=== PATIENT | female | born 1940 | race Two or more races ===

== ENCOUNTER 2020-07-05 19:01 | Inpatient (IN) | payer OTHER, MEDICAID ==
[~2020-07-05] VITALS: Ht 157.5 cm; Wt 33.0 kg
[2020-07-05 20:32] LABS: Eosinophils # (auto) 0.2 10 ^3/uL (0-0.8); Hemoglobin 9.6 g/dL (12.2-16.2)
[2020-07-05 20:33] LABS: Basophils # (auto) 0.1 10 ^3/uL (0-0.2); Basophils % (auto) 0.7 % (0.0-2.0); Eosinophils % (auto) 1.9 % (0.0-7.0); Hematocrit 31.5 % (36.0-46.0); Lymphocytes # (auto) 1.3 10 ^3/uL (0.4-5.4); Lymphocytes % (auto) 15.2 % (10.0-50.0); Mean Corpuscular Hemoglobin 25.1 pg (28.0-32.0); Mean Corpuscular Hgb Conc. 30.5 g/dL (32.0-36.0); Mean Corpuscular Volume 82.2 fL (80.0-100.0); Monocytes # (auto) 0.9 10 ^3/uL (0-1.3); Monocytes % (auto) 10.2 % (0.0-12.0); Neutrophils # (auto) 6.4 10 ^3/uL (1.6-8.6); Platelet Count (auto) 299 10^3/uL (140-450); Red Blood Cells 3.84 10^6/uL (4.0-5.20); Red Cell Distribution Width 18.6 % (11.8-14.3); White Blood Cell 8.8 10^3/uL (4.4-10.8)
[2020-07-05 20:49] LABS: Calcium 8.7 mg/dL (8.5-10.1); Potassium 3.9 mmol/L (3.5-5.1)
[2020-07-05 21:00] LABS: Albumin 3.1 g/dL (3.4-5.0); BUN/Creatinine Ratio 23.3; Bilirubin, Total 0.3 mg/dL (0.2-1.0); Total Protein 7.7 g/dL (6.4-8.2)
[2020-07-05 21:30] LABS: Urine Amorphous Crystal FEW /hpf (None Seen); Urine Bacteria MOD /hpf (None Seen); Urine Blood 1+ /uL (Negative); Urine Specific Gravity 1.013 (1.001-1.035); Urine WBC 925 /hpf (0 - 5); Urine WBC Clumps PRESENT /hpf (None Seen)
[2020-07-05] MEDS ORDERED: cefTRIAXone 1GM/50ML D5W 50 ML IV ONE (22:30)
[2020-07-05] MEDS ORDERED: SODIUM CHLORIDE 0.9% 2,000 ML IV ONE (23:00)
[2020-07-05] MEDS ORDERED: ONDANSETRON HCL 4 MG/2 ML VIAL IV PRN (23:00)
[2020-07-05] MEDS ORDERED: NITROGLYCERIN 0.4 MG SL TAB SL PRN (23:00)
[2020-07-05] MEDS ORDERED: MORPHINE SULF INJ 2 MG/ML SYRINGE 1ML IV PRN (23:00)
[2020-07-05] MEDS ORDERED: ACETAMINOPHEN 500 MG TAB PO PRN (23:00)
[2020-07-06] MEDS ORDERED: ATOR1TAB PO (00:58)
[2020-07-06] MEDS ORDERED: METF-370 PO (00:58)
[2020-07-06] MEDS ORDERED: LEVO88TA4 PO (00:58)
[2020-07-06] MEDS ORDERED: CHOL20009 PO (00:58)
--- NOTE | 2020-07-06 01:00 | NUR ---
Telemetry admit from ER MAIRA SEARS admitted to Telemetry unit. Patient oriented to Yoana Norman, primary RN, unit, room, bed, and unit policies regarding patient care and visiting hours. Patient now on continuous telemetry monitoring, tele box #63 and telemetry reading on arrival to unit is sinus rhythm. Patient weighed by bedscale and encouraged to call if they need something. All questions and concerns addressed, patient verbalized understanding.
[2020-07-06 05:00] VITALS: BP 131/57
[2020-07-06 06:48] LABS: Eosinophils # (auto) 0.2 10 ^3/uL (0-0.8); Lymphocytes # (auto) 1.1 10 ^3/uL (0.4-5.4); Lymphocytes % (auto) 14.1 % (10.0-50.0); Neutrophils # (auto) 5.5 10 ^3/uL (1.6-8.6)
[2020-07-06 06:54] LABS: Basophils # (auto) 0 10 ^3/uL (0-0.2); Basophils % (auto) 0.6 % (0.0-2.0); Hematocrit 26.7 % (36.0-46.0); Hemoglobin 8.7 g/dL (12.2-16.2); Mean Corpuscular Hemoglobin 26.1 pg (28.0-32.0); Mean Corpuscular Hgb Conc. 32.7 g/dL (32.0-36.0); Mean Corpuscular Volume 79.7 fL (80.0-100.0); Monocytes # (auto) 0.7 10 ^3/uL (0-1.3); Monocytes % (auto) 8.8 % (0.0-12.0); Neutrophils % (auto) 73.5 % (37.0-80.0); Nucleated Red Blood Cells % 0.1 %; Platelet Count (auto) 249 10^3/uL (140-450); Red Blood Cells 3.35 10^6/uL (4.0-5.20); Red Cell Distribution Width 18.5 % (11.8-14.3); White Blood Cell 7.5 10^3/uL (4.4-10.8)
--- NOTE | 2020-07-06 06:58 | NUR ---
URINE SENT TO LAB
[2020-07-06 07:18] LABS: Potassium 3.8 mmol/L (3.5-5.1)
[2020-07-06 07:23] LABS: Albumin 2.6 g/dL (3.4-5.0); Calcium 8.1 mg/dL (8.5-10.1)
[2020-07-06 07:25] LABS: Bilirubin, Total 0.3 mg/dL (0.2-1.0); Total Protein 6.9 g/dL (6.4-8.2)
--- NOTE | 2020-07-06 07:55 | NUR ---
Opening Shift Note Assumed care of patient, awake and alertx4. No S/S of distress/SOB or pain. Instructed on POC and to call for assist PRN. Bed at lowest locked position and all light within reach will continue to monitor for changes Q1hr and PRN.
[2020-07-06 08:00] VITALS: BP 134/63
--- NOTE | 2020-07-06 09:00 | NUR ---
Assisted patient to set up tray and open food containers. Patient sitting up and eating with no difficulty. Call light within reach. Will continue to monitor PRN.
[2020-07-06 09:15] VITALS: BP 134/63
[2020-07-06] MEDS ORDERED: LACTULOSE 20Gm/30ML SOLN PO ONE (10:00)
[2020-07-06] MEDS: cefTRIAXone 1GM/50ML D5W 50 ML IV SCH ×2 (11:00→11:03)
[2020-07-06 13:00] VITALS: BP 158/76
--- NOTE | 2020-07-06 16:33 | NUR ---
DR. BARNEY AT BEDSIDE
[2020-07-06 16:42] VITALS: BP 148/66
[2020-07-06] MEDS ORDERED: levoFLOXacin 500MG 100 ML IV ONE (18:00)
--- NOTE | 2020-07-06 19:11 | NUR ---
closing note Patient comfortably resting in bed. Bed at lowest locked position . Report given Cindy HATCH
[2020-07-06 22:00] VITALS: BP 145/63
[2020-07-07 05:00] VITALS: BP 155/72
[2020-07-07 08:00] VITALS: BP 160/70
--- NOTE | 2020-07-07 08:00 | NUR ---
opening note Opening Shift Note Assumed care of patient, awake and alertx4. Assisted patient with setting up breakfast tray. Patient currently eating breakfast. No S/S of distress/SOB or pain. Instructed on POC and to call for assist PRN, will continue to monitor for changes Q1hr and PRN. Bed at lowest locked position and all light within reach.
[2020-07-07] MEDS ORDERED: LISI-646 PO (09:16)
[2020-07-07] MEDS ORDERED: SERT100T PO (09:19)
--- NOTE | 2020-07-07 09:58 | NUR ---
family update Provided patient's family with a POC update after password was provided.
[2020-07-07] MEDS ORDERED: LISINOPRIL 20 MG TAB PO SCH (10:00)
[2020-07-07] MEDS ORDERED: levoFLOXacin 500MG 100 ML IV SCH (10:00)
[2020-07-07] MEDS ORDERED: levoFLOXacin 250MG 50 ML IV SCH (10:00)
--- NOTE | 2020-07-07 10:22 | NUR ---
Dr. Houston at bedside.
[2020-07-07 13:00] VITALS: BP 137/80
--- NOTE | 2020-07-07 14:40 | NUR ---
Cooper catheter dc'd Order to discontinue Cooper catheter. Cooper dc'd with clean technique following deflation of balloon. Patient tolerated well with no complaints of pain. Continue care.
--- NOTE | 2020-07-07 14:41 | NUR ---
Called patient's son Patrick, to inform him of patient's discharge order. He stated " i will be there within an hour".
--- NOTE | 2020-07-07 14:49 | NUR ---
IV removal IV DC'd with clean sterile technique, catheter fully intact. Pressure dressing applied to site. Patient tolerated well.
--- NOTE | 2020-07-07 16:21 | NUR ---
RAS Laura "Sridevi", patient's daughter. She will not be able to pick the patient up until approximately 17:30. Patient is ready for pick-up. Will inform patient.
--- NOTE | 2020-07-07 18:33 | NUR ---
Called patient's son Patrick again, to ask about their ETA. He stated he did not know, and that he would ask his sister. Awaiting call back.
--- NOTE | 2020-07-07 19:26 | NUR ---
closing note Patient is comfortable resting in bed. No s/s of distress/sob noted/stated. Bed at lowest locked position and call light within reach. Care endorsed to NOC RN.
--- NOTE | 2020-07-07 20:20 | NUR ---
Discharge instructions given as ordered. Encourage to follow up with PMD as instructed. All questions and concerns addressed. Patient verbalized understanding. IV and maravilla catheter removed by day shift. Patient taken to vehicle via wheelchair with all personal belongings, accompanied by staff and family member. No distress noted at time of departure.
[2020-07-07] MEDS ORDERED: SERTRALINE HCL 50 MG TAB PO SCH (22:00)
== END 2020-07-07 20:20 | disposition home or self-care (01) | DRG 871 ==
LOC: EDBD 19:01 → ER 19:01 → TELE 19:02 → TELE-WESTW 23:37
PROVIDERS: ADMIT Internal Medicine; ATTEND Internal Medicine
DX: A41.9 Sepsis, unspecified organism (principal); G93.41 Metabolic encephalopathy; N39.0 Urinary tract infection, site not specified; G45.9 Transient cerebral ischemic attack, unspecified; E11.9 Type 2 diabetes mellitus without complications; I10 Essential (primary) hypertension; Z86.73 Personal history of transient ischemic attack (TIA), and cerebral infarction without residual deficits; Z96.642 Presence of left artificial hip joint
CPT/HCPCS: 36415; 70450; 74176; 80053; 81001; 83880; 84484; 85025; 87040; 87086; 93005; G0378; J0696; J1956